=== PATIENT | male | born 1980 | race Caucasian/White ===

== ENCOUNTER 2016-09-13 17:32 | Emergency (ER) | payer OTHER ==
[~2016-09-13 17:32] MED LIST: LOPE2 PO; Z.0.NO CURRENT MEDS; ZOFR4TAB3 SL
[2016-09-13 18:07] VITALS: BP 120/75; PULSE 112; RESP 17; TEMP 97.8; O2SAT 96
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
[2016-09-13 18:56] LABS: AUTOMATED NEUTROPHIL # 9.2 TH/MM3 (1.8-7.7); BASOPHIL % 0.3 % (0.0-2.0); EOSINOPHIL % 0.1 % (0.0-4.0); HEMATOCRIT 45.1 % (39.0-51.0); HEMO FLAGS DIFF FINAL; LYMPH % 12.2 % (9.0-44.0); LYMPHOCYTE # 1.4 TH/MM3 (1.0-4.8); MEAN CELL VOLUME 86.4 FL (80.0-100.0); MEAN CORPUSCULAR HEMOGLOBIN 30.8 PG (27.0-34.0); MEAN CORPUSCULAR HGB CONC 35.7 % (32.0-36.0); NEUT % 80.4 % (16.0-70.0); PLATELET COUNT 245 TH/MM3 (150-450); RED BLOOD COUNT 5.21 MIL/MM3 (4.50-5.90); RED CELL DISTRIBUTION WIDTH 12.9 % (11.6-17.2); WHITE BLOOD COUNT 11.4 TH/MM3 (4.0-11.0)
[2016-09-13 19:18] LABS: ANION GAP 11 MEQ/L (5-15)
[2016-09-13 19:21] LABS: ALKALINE PHOSPHATASE 86 U/L (45-117); ALT (GPT) 24 U/L (12-78); AST (GOT) 16 U/L (15-37); BICARBONATE 22.3 MEQ/L (21.0-32.0); BLOOD UREA NITROGEN 15 MG/DL (7-18); CHLORIDE 107 MEQ/L (98-107); GLOMERULAR FILTRATION RATE 64 ML/MIN (>89); POTASSIUM 3.5 MEQ/L (3.5-5.1); SODIUM (NA) 140 MEQ/L (136-145)
[2016-09-13 19:51] LABS: AMPHETAMINE, URINE NEG (NEG); BARBITURATES, URINE NEG (NEG); COCAINE, URINE NEG (NEG)
[2016-09-13 22:26] VITALS: BP 163/79; PULSE 93; RESP 17; O2SAT 99
[2016-09-14 02:00] VITALS: BP 169/82; PULSE 116; RESP 18; O2SAT 97
[2016-09-14 06:18] VITALS: BP 131/78; PULSE 101; RESP 18; O2SAT 99
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
== END 2016-09-14 09:35 | disposition home or self-care (01) ==
LOC: NEDAMB 17:32 → NEPJ 09-14 09:35
DX: F43.22 Adjustment disorder with anxiety (principal)
CPT/HCPCS: 80053; 80307; 85025; 99284